=== PATIENT | female | born 1990 | race Two or more races ===

== ENCOUNTER → 2024-03-19 | Outpatient (CLI) | payer BC, MEDICAID, SELFPAY ==
[2024-03-19 11:19] LABS: Collection Type, Urine Clean Catch
[2024-03-19 11:36] LABS: Basophils # (Auto) 0.1 Thou/mm3 (0.0-0.2); Basophils % (Auto) 1 % (0-2.5); Eosinophils # (Auto) 0.2 Thou/mm3 (0.0-0.5); Eosinophils % (Auto) 3 % (0-10); Hematocrit 41.1 % (36.0-46.0); Hemoglobin 14.1 g/dL (12.0-16.0); Immature Granulocytes % (Auto) 0 % (0-0); Immature Granulocytes Auto 0.01 Thou/mm3 (0.00-0.00); Lymphocytes # (Auto) 1.6 Thou/mm3 (1.0-4.8); Lymphocytes % (Auto) 31 % (10-50); Mean Corpuscular HGB Conc 34.3 g/dl (31.0-37.0); Mean Corpuscular Hemoglobin 27.5 pg (25.0-35.0); Mean Corpuscular Volume 80 fL (80-100); Monocytes # (Auto) 0.2 Thou/mm3 (0.0-0.8); Monocytes % (Auto) 4 % (0-12); Neutrophils # (Auto) 3.1 Thou/mm3 (1.8-7.7); Neutrophils % (Auto) 60 % (37-80); Nucleated Red Blood Cell % 0 /100 WBC (0); Platelet Count 293 Thou/mm3 (140-440); RDW Standard Deviation 34.6 fL (36.4-46.3); Red Blood Count 5.13 Miln/mm3 (4.00-5.20); White Blood Count 5.2 Thou/mm3 (3.6-11.0)
[2024-03-19 11:42] LABS: Glucose Estimated Average 103 mg/dL (80-131); Hemoglobin A1C 5.2 % Hgb (4.8-6.0)
[2024-03-19 11:42] LABS: Bilirubin,Urine Negative (Negative); Blood,Urine Trace (Negative); Clarity,Urine Clear (Clear/Hazy); Color,Urine Colorless (Lt Yel-Yel); Glucose, Urine Negative (Negative); Ketones,Urine Negative (Negative); Leukocyte Esterase,Urine Negative (Negative); Nitrite,Urine Negative (Negative); PH,Urine 6.5 (5.0-7.0); Protein,Urine Negative (Neg - Trace); RBC,Urine 2 /hpf (0-3); Specific Gravity,Urine 1.008 (1.001-1.035); Squamous Epithelial Cell,Urine 1 /hpf (0-5); Urobilinogen,Urine Negative mg/dL (0.0-1.0); WBC,Urine < 1 /hpf (0-5)
[2024-03-19 12:27] LABS: Cholesterol 229 mg/dL (132-200); Free T4 (Free Thyroxine) 1.07 ng/dL (0.89-1.76); Magnesium 2.1 mg/dL (1.6-2.6)
[2024-03-19 12:33] LABS: Cardiac Risk Estimate 5.5 RATIO (3.7-5.6); HDL Cholesterol 42 mg/dL (40-60); LDL Cholesterol,Calculated 123 mg/dL (0-130); Triglycerides 320 mg/dL (30-150)
[2024-03-19 12:34] LABS: Hepatitis B Surface Antigen Non Reactive (Non React); Vitamin D 25 Hydroxy Total 21.4 ng/mL (7.3-40.2)
[2024-03-24 22:07] LABS: HCV RNA, PCR <15 NOT DETECTED IU/mL; Hepatitis B Virus DNA* NOT DETECTED
[2024-03-25 06:25] LABS: Direct LDL* 127 mg/dL (<100); HCV RNA, PCR Log IU <1.18 NOT DETECTED Log IU/mL; HIV Ag/Ab, 4th Gen NON-REACTIVE; Hepatitis B Core Ab,Total* NONREACTIVE; Hepatitis B DNA PCR NOT DETECTED Log IU/mL; Thyroid Peroxidase Antibodies* 1 IU/mL (<9)
== END | disposition home or self-care (01) ==
PROVIDERS: PCP Registered Nurse Community Health; Referring Provider Registered Nurse Community Health; Visit Provider Registered Nurse Community Health
DX: Z00.01 Encounter for general adult medical examination with abnormal findings (principal); E78.2 Mixed hyperlipidemia; M25.50 Pain in unspecified joint; Z79.899 Other long term (current) drug therapy; Z11.3 Encounter for screening for infections with a predominantly sexual mode of transmission; Z11.59 Encounter for screening for other viral diseases; Z82.69 Family history of other diseases of the musculoskeletal system and connective tissue
CPT/HCPCS: 36415; 80061; 81001; 82306; 83036; 83721; 83735; 84439; 84443; 85025; 86376; 86704; 87340; 87389; 87517; 87522

== ENCOUNTER → 2024-03-29 | Outpatient (CLI) | payer BC, MEDICAID, SELFPAY ==
--- NOTE | 2024-03-29 15:20 | XR_ITS ---
Examination: Thyroid sonography complete TECHNIQUE: Grayscale sonographic images right and left thyroid lobes with color flow analysis Exam date and time: March 29, 2024 1536 hours INDICATIONS: Difficulty swallowing several months FINDINGS: Right thyroid 5.3 x 1.6 x 1.9 cm Left thyroid 4.4 x 1.6 x 1.7 cm Upper pole left thyroid cyst 2 x 2 mm No solid nodules IMPRESSION: BI-RADS Category 2: Benign findings
== END | disposition home or self-care (01) ==
LOC: CDIM 15:09
PROVIDERS: PCP Registered Nurse Community Health; Referring Provider Registered Nurse Community Health; Visit Provider Registered Nurse Community Health
DX: R13.10 Dysphagia, unspecified (principal); R22.1 Localized swelling, mass and lump, neck
CPT/HCPCS: 76536

== ENCOUNTER → 2024-06-30 | Outpatient (CLI) | payer BC, SELFPAY ==
[2024-06-30 14:10] LABS: Misc Send Out* See Sep Rpt
[2024-06-30 14:35] LABS: Basophils # (Auto) 0.1 Thou/mm3 (0.0-0.2); Basophils % (Auto) 1 % (0-2.5); Eosinophils # (Auto) 0.3 Thou/mm3 (0.0-0.5); Eosinophils % (Auto) 4 % (0-10); Hematocrit 41.1 % (36.0-46.0); Immature Granulocytes % (Auto) 0 % (0-0); Immature Granulocytes Auto 0.01 Thou/mm3 (0.00-0.00); Lymphocytes % (Auto) 30 % (10-50); Mean Corpuscular HGB Conc 34.1 g/dl (31.0-37.0); Mean Corpuscular Hemoglobin 27.2 pg (25.0-35.0); Mean Corpuscular Volume 80 fL (80-100); Monocytes # (Auto) 0.3 Thou/mm3 (0.0-0.8); Monocytes % (Auto) 4 % (0-12); Neutrophils # (Auto) 4.2 Thou/mm3 (1.8-7.7); Neutrophils % (Auto) 61 % (37-80); Nucleated Red Blood Cell % 0 /100 WBC (0); Platelet Count 324 Thou/mm3 (140-440); RDW Standard Deviation 34.5 fL (36.4-46.3); Red Blood Count 5.15 Miln/mm3 (4.00-5.20); White Blood Count 6.9 Thou/mm3 (3.6-11.0)
[2024-06-30 15:01] LABS: Alanine Aminotransferase 22 U/L (10-49); Albumin, Serum 4.8 gm/dL (3.5-5.0); Albumin/Globulin Ratio 1.7 (1.2-2.2); Alkaline Phosphatase 87 U/L (46-116); Anion Gap 8 (7-16); Aspartate Amino Transferase 24 U/L (0-34); BUN/Creatinine Ratio 10 Ratio (12-20); Bilirubin,Total 0.5 mg/dL (0.3-1.2); Blood Urea Nitrogen 7 mg/dL (9-23); C-Reactive Protein < 0.5 mg/dL (0.0-0.9); Calcium 9.7 mg/dL (8.3-10.6); Calcium (Corrected) 9.7 mg/dL (8.5-10.1); Carbon Dioxide 28.9 mMol/L (20.0-31.0); Chloride 104 mMol/L (98-107); Creatinine (Component) 0.7 mg/dL (0.6-1.3); Free T4 (Free Thyroxine) 1.17 ng/dL (0.89-1.76); Globulin 2.9 gm/dL (2.3-3.5); Glucose 105 mg/dL (74-106); Osmolality,Calculated 279 (275-295); Potassium 3.4 mMol/L (3.4-5.1); Sodium 141 mMol/L (136-145); Thyroid Stimulating Hormone 0.87 uIU/mL (0.55-4.78); Total Protein 7.7 gm/dL (5.7-8.2); eGFR > 60 See Note
[2024-06-30 15:23] LABS: Sed Rate (ESR) 6 mm/hr (0-20)
[2024-07-05 19:52] LABS: Cardiolipin Ab (IgA) <2.0 APL-U/mL; Cardiolipin Ab (IgG) <2.0 GPL-U/mL; Sjogren's antibody (SS-A) <1.0 NEG AI (<1.0 NEGATIVE); Sm Antibody <1.0 NEG AI (<1.0 NEGATIVE)
[2024-07-06 06:36] LABS: Cardiolipin Ab (IgM) <2.0 MPL-U/mL; Complement Component C3* 153 mg/dL (83-193); Complement Component C4c* 29 mg/dL (15-57); DNA (ds) Antibody* 1 IU/mL; Scl-70 Antibody* <1.0 NEG AI (<1.0 NEGATIVE); Sjogren's Antibody (SS-B) <1.0 NEG AI (<1.0 NEGATIVE); Sm/RNP Antibody <1.0 NEG AI (<1.0 NEGATIVE); Thyroid Peroxidase Antibodies* 1 IU/mL (<9)
== END | disposition home or self-care (01) ==
PROVIDERS: PCP Registered Nurse Community Health; Referring Provider Internal Medicine; Visit Provider Internal Medicine
DX: E55.9 Vitamin D deficiency, unspecified (principal); I73.00 Raynaud's syndrome without gangrene; L56.8 Other specified acute skin changes due to ultraviolet radiation; M25.50 Pain in unspecified joint; M70.61 Trochanteric bursitis, right hip; R53.83 Other fatigue; R76.8 Other specified abnormal immunological findings in serum; S62.101A Fracture of unspecified carpal bone, right wrist, initial encounter for closed fracture; Z83.2 Family history of diseases of the blood and blood-forming organs and certain disorders involving the immune mechanism; X58.XXXA Exposure to other specified factors, initial encounter
CPT/HCPCS: 36415; 80053; 81001; 84439; 84443; 85025; 85652; 86140; 86147; 86160; 86225; 86235; 86376; 86880

== ENCOUNTER → 2024-08-19 | Outpatient (CLI) | payer BC, SELFPAY ==
[2024-08-19 08:22] LABS: Cholesterol 210 mg/dL (132-200); HDL Cholesterol 42 mg/dL (40-60); LDL Cholesterol,Calculated 123 mg/dL (0-130); Triglycerides 225 mg/dL (30-150)
[2024-08-25 07:18] LABS: Direct LDL* 144 mg/dL (<100)
== END | disposition home or self-care (01) ==
LOC: COPL 07:07
PROVIDERS: PCP Registered Nurse Community Health; Referring Provider Registered Nurse Community Health; Visit Provider Registered Nurse Community Health
DX: E78.2 Mixed hyperlipidemia (principal)
CPT/HCPCS: 36415; 80061; 83721

== ENCOUNTER 2024-11-19 14:25 | Outpatient (RCR) | payer OTHER, BC, SELFPAY ==
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
== END 2024-12-14 23:59 | disposition home or self-care (01) ==
LOC: CPTX 14:25
PROVIDERS: PCP Family Medicine; Referring Provider Family Medicine; Visit Provider Family Medicine
DX: M54.2 Cervicalgia (principal); R20.0 Anesthesia of skin; M53.2X2 Spinal instabilities, cervical region
CPT/HCPCS: 97162

== ENCOUNTER 2025-01-13 17:00 | Outpatient (RCR) | payer OTHER, BC, SELFPAY ==
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
== END 2025-01-14 23:59 | disposition home or self-care (01) ==
LOC: CPTX 17:00
PROVIDERS: PCP Family Medicine; Referring Provider Family Medicine; Visit Provider Family Medicine
DX: M54.2 Cervicalgia (principal); M53.2X2 Spinal instabilities, cervical region; R20.0 Anesthesia of skin
CPT/HCPCS: 97110